=== PATIENT | female | born 1995 | race Caucasian/White ===

== ENCOUNTER 2019-09-23 19:20 | Inpatient (IN) | payer MEDICAID ==
[2019-09-23] MEDS ORDERED: DINOPROSTONE 10 MG VAGINAL INSERT.SR PV PRN (20:02)
[2019-09-23] MEDS ORDERED: RINGERS SOLUTION,LACTATED 300 ML IV ONE (20:02)
[2019-09-23] MEDS ORDERED: RINGERS SOLUTION,LACTATED 1,000 ML IV PRN (20:02)
[2019-09-23 20:09] LABS: ABSOLUTE EOSINOPHILS # (AUTO) 0.1 10^3/uL (0.0-0.6); ABSOLUTE LYMPHOCYTES (AUTO) 2.9 10^3/uL (0.5-4.7); ABSOLUTE NEUT (AUTO) 11.9 10^3/uL (1.7-8.2); BASOPHILS % (AUTO) 0.2 % (0-2); EOSINOPHILS % (AUTO) 0.4 % (0-6); HEMATOCRIT 35.2 % (36.0-47.0); HEMOGLOBIN 11.7 g/dL (12.0-15.5); LYMPHOCYTES % (AUTO) 18.1 % (13-45); MEAN CORPUSCULAR HEMOGLOBIN 29.8 pg (27.0-33.4); MEAN CORPUSCULAR HGB CONC 33.1 g/dL (32.0-36.0); MEAN CORPUSCULAR VOLUME 90 fl (80-97); MONOCYTES % (AUTO) 6.2 % (3-13); PLATELET COUNT 226 10^3/uL (150-450); RED BLOOD COUNT 3.91 10^6/uL (3.72-5.28); RED CELL DISTRIBUTION WIDTH 15.3 % (11.5-14.0); SEGMENTED NEUTROPHILS % (AUTO) 75.1 % (42-78); TOTAL CELLS COUNTED % (AUTO) 100 %; WHITE BLOOD COUNT 15.8 10^3/uL (4.0-10.5)
[2019-09-23] MEDS ORDERED: DINOPROSTONE 10 MG VAGINAL INSERT.SR ONE (20:32)
[2019-09-23 21:18] LABS: APPEARANCE,URINE SLIGHTLY-CLOUDY; BILIRUBIN,URINE NEGATIVE (NEGATIVE); COLOR,URINE YELLOW; GLUCOSE, URINE NEGATIVE (NEGATIVE); KETONES,URINE 20 mg/dL (NEGATIVE); LEUKOCYTE ESTERASE,URINE TRACE (NEGATIVE); NITRITE,URINE NEGATIVE (NEGATIVE); PROTEIN,URINE 30 mg/dL (NEGATIVE); URINE SPECIFIC GRAVITY 1.012; UROBILINOGEN,URINE NEGATIVE mg/dL (<2.0)
[2019-09-23 21:33] LABS: URINE AMPHETAMINES SCREEN NEGATIVE; URINE BENZODIAZEPINES SCREEN NEGATIVE; URINE COCAINE SCREEN NEGATIVE; URINE MARIJUANA (THC) SCREEN NEGATIVE; URINE METHADONE SCREEN NEGATIVE; URINE PHENCYCLIDINE SCREEN NEGATIVE
[2019-09-23 22:10] LABS: URINE BARBITURATES SCREEN UNCONFIRMED POSITIVE
[2019-09-24] MEDS ORDERED: ACETAMINOPHEN 325 MG TABLET PO PRN (01:43)
[2019-09-24] MEDS ORDERED: MAG HYDROX/AL HYDROX/SIMETH SUSP 30 ML UDCUP PO PRN (01:43)
[2019-09-24] MEDS ORDERED: ZOLPIDEM TARTRATE 5 MG TABLET PO PRN ×2 (01:43→09:48)
[2019-09-24] MEDS ORDERED: ACETAMINOPHEN 325 MG TABLET ONE (01:46)
[2019-09-24] MEDS ORDERED: ZOLPIDEM TARTRATE 5 MG TABLET ONE (01:46)
[2019-09-24] MEDS ORDERED: OXYTOCIN/NORMAL SALINE 20 UNIT/1,000 ML RTUINJ ONE ×2 (04:36→10:20)
[2019-09-24] MEDS ORDERED: LIDOCAINE 1% INJ-PF (10 MG/ML) 30 ML SDV ONE (04:36)
[2019-09-24] MEDS ORDERED: OXYTOCIN 10 UNIT/ML VIAL ONE (04:36)
[2019-09-24] MEDS ORDERED: MISOPROSTOL 0.2 MG TABLET ONE (04:36)
[2019-09-24] MEDS ORDERED: FENTANYL/BUPIVACAINE/NS/PF 0 MCG/0 ML RTUINJ EPI ONE (07:28)
[2019-09-24] MEDS ORDERED: EPHEDRINE SULFATE INJ 50 MG/1 ML AMPULE ONE (07:28)
[2019-09-24] MEDS ORDERED: BUPIVACAINE HCL 0.25 % INJ/PF (2.5 MG/1 ML) 30 ML VIAL ONE (07:28)
[2019-09-24] MEDS ORDERED: OXYTOCIN/NORMAL SALINE 20 UNIT/1,000 ML RTUINJ IV PRN (09:48)
[2019-09-24] MEDS ORDERED: DIBUCAINE 1% OINTMENT 56 GM TP PRN ×2 (09:48→18:15)
[2019-09-24] MEDS ORDERED: BENZOCAINE/MENTHOL AEROSOL SPRAY 56 ML TOP PRN ×2 (09:48→18:15)
[2019-09-24] MEDS ORDERED: DIPH/PERTUSS(ACELL)/TETANUS VAC/PF 0.5 ML SYR (>=10YO) IM PRN (09:48)
[2019-09-24] MEDS ORDERED: ACETAMINOPHEN WITH CODEINE #3 TABLET PO PRN ×2 (09:48)
[2019-09-24] MEDS ORDERED: BENZOCAINE/MENTHOL AEROSOL SPRAY 56 ML ONE (10:15)
[2019-09-24] MEDS ORDERED: IBUPROFEN 800 MG TABLET ONE (10:15)
[2019-09-24] MEDS: IBUPROFEN 800 MG TABLET PO SCH ×2 (10:20→22:51)
--- NOTE | 2019-09-24 15:59 | Delivery Summary ---
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 Nurse:: Kierra Griffin RN Nursery Nurse:: Rosa Hairston RN Student Observers:: LINO Cornejo SN K Zacharias, SN Scrub Tech/BILINGUAL MEDICAL RECEPTIONIST: Vanessa Florence, RELOCATION COMMISSIONER Additional Personnel: : Giselle Walters RN MATERNAL INFORMATION Delivery Anesthesia: None Medications After Delivery: Pitocin Drip 20 Units/1000ml NSS Meds After Delivery Comment: pitocin bolus 20 units in 1000mL nss Estimated Blood Loss (ml): 100 Delivery QBL: 100 Maternal Complications: None Provider Comments: of a viable femal @ 0840 w/ an SAAD w/ right compound hand presentation; APGARS 9, 9; 2nd deg bilateral periurethral and 2nd deg vag lacs LABOR SUMMARY EDC: 09/23/2019 00:00 No. Babies in Womb: 1 Attempted: No Labor Anesthesia: None LABOR INFORMATION Reason for Induction: Gestational Hypertension Onset of Labor: 09/24/2019 04:00 Complete Dilatation: 09/24/2019 08:09 Cervical Ripening Agents: Cervidil Oxytocin: N/A Group B Beta Strep: negative Antibiotics # of Doses: 0 Steroids Given: None Reason Steroids Not Administered: Not Applicable MEMBRANES Membranes Rupture Method: Spontaneous Rupture of Membranes: 09/24/2019 04:00 Length of Rupture (hr): 4.67 Amniotic Fluid Color: Clear Amniotic Fluid Amount: Moderate Amniotic Fluid Odor: Normal STAGES OF LABOR Stage 1 hr: 4 Stage 1 min: 9 Stage 2 hr: 0 Stage 2 min: 31 Stage 3 hr: 0 Stage 3 min: 25 Total Time in Labor hr: 5 Total Time in Labor min: 5 VAGINAL DELIVERY Episiotomy: None Laceration #1: Periurethral Laceration Extension #1: Second Degree Laceration #2: Vaginal Laceration Extension #2: Second Degree Laceration Repair: Yes Laceration Repair Note: 2nd deg bilateral periurethral lacs repaired w/3-0 Chromic; 2nd deg vaginal w/left lateral extension repaired w/2-0 vicryl Sponge Count Correct: Yes Sharps Count Correct: Yes BABY A INFORMATION Infant Delivery Date/Time: 09/24/2019 08:40 Method of Delivery: Vaginal Born in Route : No : N/A Forceps: N/A Vacuum Extraction: N/A Shoulder Dystocia : No PRESENTATION/POSITION BABY A Presentation: Cephalic Cephalic Presentation: Vertex Vertex Position: Right Occipital Anterior Breech Presentation: N/A (Annotations: Data stored by [facility] on behalf of user) PLACENTA INFORMATION BABY A Placenta Delivery Time : 09/24/2019 09:05 Placenta Method of Delivery: Spontaneous Placenta Status: Delivered SCORES BABY A Heart Rate 1 min: >100 bpm Resp Effort 1 min: Good Cry Reflex Irritability 1 min: Cough or Sneeze or Pulls Away Muscle Tone 1 min: Active Motion Color 1 min: Body [place], Extremities Blue Resuscitation Effort 1 min: Tactile Stimulation SCORE 1 MIN: 9 Heart Rate 5 min: >100 bpm Resp Effort 5 min: Good Cry Reflex Irritability 5 min: Cough or Sneeze or Pulls Away Muscle Tone 5 min: Active Motion Color 5 min: Body [place], Extremities Blue Resuscitation Effort 5 min: Tactile Stimulation SCORE 5 MIN: 9 INFORMATION BABY A Gestational Age at Delivery: 40.1 Gestational Status: Full Term- 39- 40.6 Weeks Infant Outcome : Liveborn Condition : Stable Infant Sex: Female IDENTIFICATION BABY A Infant Verification Date/Time: 09/24/2019 10:03 ID Band Number: [id number] Mother's Name Verified: Yes Infant RN Verifying : Odalys Resendez, RN and B Baidy, RN WEIGHT/LENGTH BABY A Infant Birthweight (gm): 3099 Weight (lb): 6 Weight (oz): 13 Length (in): 20.00 Infant Length (cm): 50.80 CORD INFORMATION BABY A No. Cord Vessels: 3 Nuchal Cord : N/A Cord Blood Taken: Yes-For Storage (Mom's Blood type +) Suction: None ASSESSMENT BABY A Physical Findings at Delivery: Within Normal Limits; Molding of the Head Respirations: Appears Normal Skin to Skin: Yes Infant Care By: Kamar Washington RN, Lazaro Hairston, LINO Transferred To: Remains with Mother BABY B INFORMATION : N/A SIGNATURES Signature: with User ID: [email or web address]
[2019-09-24] MEDS: FERROUS SULFATE 325 MG TABLET PO SCH ×2 (17:38→17:55)
[2019-09-24] MEDS: SENNOSIDES/DOCUSATE 8.6-50 MG 1 EACH TABLET PO SCH (17:38)
[2019-09-24] MEDS: DOCUSATE SODIUM 100 MG CAPSULE PO SCH ×2 (17:38→17:55)
[2019-09-24] MEDS: PRENATAL VITAMIN W DHA CAPSULE PO SCH (17:38)
[2019-09-24] MEDS ORDERED: MEASLES,MUMPS&RUBELLA VACC/PF 0.5 ML VIAL SUBCUT PRN (18:15)
--- NOTE | 2019-09-24 18:46 | Admission Physical ---
Datetime Report Generated by CPN: 09/24/2019 18:46 CURRENT ADMISSION Chief Complaint: Signs/Symptoms Gestational HTN Indication for Induction: Gestational HTN Admit Impression : Term, Intrauterine ; No Active Labor; Intact Membranes; Induction of Labor Admit Plan: Admit to Unit; Initiate Labor Induction Protocol ALLERGIES Medication Allergies: No Medication Allergies: No Known Allergies (09/23/2019) Latex: No Latex Allergies OBSTETRICAL HISTORY EDC: 09/23/2019 00:00 : 1 Para: 0 Gestational Diabetes: No Rh Sensitization: No Incompetent Cervix: No LAMONT: No Infertility: No ART Treatment: No Uterine Anomaly: No IUGR: No Hx Previous C/S: No Macrosomia: No Hx Loss/Stillborn: No PIH: No Hx : No Placenta Previa/Abruption: No Depression/PP Depression: No PTL/PROM: No Post Hemorrhage: No Current Procedures: Ultrasound SEE RECORDS Alcohol: No Marijuana : No Cocaine: No Other Illicit Drugs: No Cigarettes: Never Smoker. [id number] MEDICAL HISTORY Diabetes: No Blood Transfusion: No Pulmonary Disease (Asthma, TB): No Breast Disease: No Hypertension: Yes Plasterer Spray Gun Surgery: No Heart Disease: No Hosp/Surgery: Yes Autoimmune Disorder: No Anesthetic Complications: No Kidney Disease: No Abnormal Pap Smear: No Neuro/Epilepsy: No Psychiatric Disorders: No Other Medical Diseases: No Hepatitis/Liver Disease: No Significant Family History: No Varicosities/Phlebitis: No Trauma/Violence : No Thyroid Dysfunction: No Medical History Comments: High BP readings since 09/20/19. Tonsillectomy 2016. Kidney stones 2018. INFECTIOUS HISTORY Gonorrhea: No Genital Herpes: No Chlamydia: No Tuberculosis: No Syphilis: No Hepatitis: No HIV/AIDS Exposure: No Rash or Viral Illness: No PHYSICAL EXAM General: Normal HEENT: Normal Neurologic: Normal Thyroid: Normal Heart: Normal Lungs: Normal Breast: Normal Back: Normal Abdomen: Normal Genitourinary Exam: Normal Extremities: Normal DTRs: Normal Pelvic Type: Adequate Vital Signs: Reviewed; Within Normal Limits VAGINAL EXAM Dilatation: fingertip Effacement: thick Station: 0 Contraction Comments: rare MEMBRANES Pooling: Positive Membranes: Intact FETUS A EGA: 40.1 Monitoring: External US FHR- Baseline: 140s Variability: Moderate 6-25bpm Accelerations: 15X15 Decelerations: None FHR Category: Category I Presentation: Vertex Admit Comment: with an IUP @ 40.1 presented to L_D for a scheduled IOL secondary to GHTN. She reports good movement. GBS Neg. Her cervix was closed. Cervidil planned. PLANS FOR LABOR AND DELIVERY Labor and Delivery: None Pain Management: Epidural Feeding Preference: Formula Benefit of Breast Feed Discussed: Yes Circumcision: N/A INFORMED CONSENT Signature: with User ID: [email or web address]
[2019-09-24] MEDS: ACETAMINOPHEN WITH CODEINE #3 TABLET PO PRN (18:47)
[2019-09-25] MEDS: IBUPROFEN 800 MG TABLET PO SCH ×3 (06:03→21:21)
[2019-09-25 08:29] LABS: HEMATOCRIT 30.9 % (36.0-47.0); HEMOGLOBIN 10.3 g/dL (12.0-15.5); MEAN CORPUSCULAR HEMOGLOBIN 30.4 pg (27.0-33.4); MEAN CORPUSCULAR HGB CONC 33.4 g/dL (32.0-36.0); MEAN CORPUSCULAR VOLUME 91 fl (80-97); PLATELET COUNT 175 10^3/uL (150-450); RED CELL DISTRIBUTION WIDTH 15.2 % (11.5-14.0); WHITE BLOOD COUNT 12.4 10^3/uL (4.0-10.5)
--- NOTE | 2019-09-25 09:07 | PDOC PROGRESS REPORT ---
Subjective-OB Progress Note for:: 09/25/19 Subjective: Doing well, no c/o, bottle feeding, encouraged to wear bra, mod lochia Physical Exam (OB) Vital Signs: Temp Pulse Resp BP Pulse Ox 97.8 F 60 16 124/71 99 09/25/19 07:21 09/25/19 07:21 09/25/19 07:21 09/25/19 07:21 09/25/19 07:21 Intake & Output 09/24/19 09/25/19 09/26/19 06:59 06:59 06:59 Intake Total 750 Balance 750 Weight 70.4 kg - PIH/Pre-Eclampsia Headache: Absent Epigastric Pain: No Visual Changes: No - Lochia Lochia Amount: Small 10-25 ml Lochia Color: Rubra/Red - Abdomen Description: Soft Hernia Present: No Fundal Description: Firm, Midline Fundal Height: u/u - u/2 Objective-Diagnostic Laboratory: 09/25/19 08:20 09/25/19 08:20 WBC 12.4 H RBC 3.40 L Hgb 10.3 L Hct 30.9 L MCV 91 MCH 30.4 MCHC 33.4 RDW 15.2 H Plt Count 175 Assessment and Plan(PN) - Assessment and Plan (1) Vaginal laceration Qualifiers: Perineal laceration degree: second degree Is this a current diagnosis for this admission?: Yes (2) Delivery normal Is this a current diagnosis for this admission?: Yes - Time Spent with Patient Time with patient: Less than 15 minutes Medications reviewed and adjusted accordingly: Yes - Disposition Anticipated Discharge: Home Within: within 24 hours
[2019-09-25] MEDS: DOCUSATE SODIUM 100 MG CAPSULE PO SCH ×2 (09:38→17:25)
[2019-09-25] MEDS: PRENATAL VITAMIN W DHA CAPSULE PO SCH (09:38)
[2019-09-25] MEDS: FERROUS SULFATE 325 MG TABLET PO SCH ×2 (09:39→17:25)
[2019-09-25] MEDS: SENNOSIDES/DOCUSATE 8.6-50 MG 1 EACH TABLET PO SCH (09:39)
[2019-09-25] MEDS: ACETAMINOPHEN WITH CODEINE #3 TABLET PO PRN (21:20)
[2019-09-26] MEDS: ACETAMINOPHEN WITH CODEINE #3 TABLET PO PRN (05:24)
[2019-09-26] MEDS: IBUPROFEN 800 MG TABLET PO SCH (05:24)
[2019-09-26] MEDS: SENNOSIDES/DOCUSATE 8.6-50 MG 1 EACH TABLET PO SCH (09:40)
[2019-09-26] MEDS: DOCUSATE SODIUM 100 MG CAPSULE PO SCH (09:40)
[2019-09-26] MEDS: PRENATAL VITAMIN W DHA CAPSULE PO SCH (09:40)
[2019-09-26] MEDS: FERROUS SULFATE 325 MG TABLET PO SCH (09:40)
--- NOTE | 2019-09-26 10:24 | PDOC PROGRESS REPORT ---
Subjective-OB Progress Note for:: 09/26/19 Subjective: Doing well, no c/o, bottle feeding, voiding, scant lochia, father in room, ready to go Physical Exam (OB) Vital Signs: Temp Pulse Resp BP Pulse Ox 98.0 F 62 16 109/66 98 09/26/19 07:14 09/26/19 07:14 09/26/19 07:14 09/26/19 07:14 09/26/19 07:14 Intake & Output 09/25/19 09/26/19 09/27/19 06:59 06:59 06:59 Intake Total 750 450 Balance 750 450 - PIH/Pre-Eclampsia DTR's: 1 + Clonus: Negative Headache: Absent Epigastric Pain: No Visual Changes: No - Lochia Lochia Amount: Small 10-25 ml Lochia Color: Rubra/Red - Abdomen Description: Soft Hernia Present: No Fundal Description: Midline Fundal Height: u/u - u/2 Objective-Diagnostic Laboratory: 09/25/19 08:20 Assessment and Plan(PN) - Assessment and Plan (1) Vaginal laceration Qualifiers: Perineal laceration degree: second degree Is this a current diagnosis for this admission?: Yes (2) Delivery normal Is this a current diagnosis for this admission?: Yes - Time Spent with Patient Time with patient: Less than 15 minutes Medications reviewed and adjusted accordingly: Yes - Disposition Anticipated Discharge: Home Within: within 24 hours - baby home with parents
--- NOTE | 2019-09-26 10:29 | PDOC DISCHARGE SUMMARY ---
Impression - Admit/DC Date/PCP Admission Date/Primary Care Provider: 09/23/19 19:20 VENITA MONDRAGON MD Discharge Date: 09/26/19 - Discharge Diagnosis (1) Vaginal laceration Is this a current diagnosis for this admission?: Yes (2) Delivery normal Is this a current diagnosis for this admission?: Yes - Additional Information Discharge Diet: As Tolerated, Regular Discharge Activity: Activity As Tolerated, Pelvic Rest Referrals: VENITA MONDRAGON MD [Primary Care Provider] - ([facility] 2 weeks) Home Medications: Prenat 115/Iron Fum/Folic/Dss [ 19 Tablet] 1 each PO DAILY 09/23/19 HPI Gestational Age: 40.1 Reason(s) for Admission: Induction of Labor, PIH Admission Note: Pre-E Procedures: NST, Ultrasound Intrapartum Procedure(s): Spontaneous Vaginal Delivery Complication(s): Laceration-Vaginal, Laceration-Periurethral Laceration-Degree: 2nd - female, 06/21, compound hand Hospital Course Hospital Course: routine Results Laboratory Results: WBC 12.4 10^3/uL (4.0-10.5) H 09/25/19 08:20 RBC 3.40 10^6/uL (3.72-5.28) L 09/25/19 08:20 Hgb 10.3 g/dL (12.0-15.5) L 09/25/19 08:20 Hct 30.9 % (36.0-47.0) L 09/25/19 08:20 MCV 91 fl (80-97) 09/25/19 08:20 MCH 30.4 pg (27.0-33.4) 09/25/19 08:20 MCHC 33.4 g/dL (32.0-36.0) 09/25/19 08:20 RDW 15.2 % (11.5-14.0) H 09/25/19 08:20 Plt Count 175 10^3/uL (150-450) 09/25/19 08:20 Lymph % (Auto) 18.1 % (13-45) 09/23/19 19:46 [place] % (Auto) 6.2 % (3-13) 09/23/19 19:46 Eos % (Auto) 0.4 % (0-6) 09/23/19 19:46 Baso % (Auto) 0.2 % (0-2) 09/23/19 19:46 Absolute Neuts (auto) 11.9 10^3/uL (1.7-8.2) H 09/23/19 19:46 Absolute Lymphs (auto) 2.9 10^3/uL (0.5-4.7) 09/23/19 19:46 Absolute Monos (auto) 1.0 10^3/uL (0.1-1.4) 09/23/19 19:46 Absolute Eos (auto) 0.1 10^3/uL (0.0-0.6) 09/23/19 19:46 Absolute Basos (auto) 0.0 10^3/uL (0.0-0.2) 09/23/19 19:46 Seg Neutrophils % 75.1 % (42-78) 09/23/19 19:46 Urine Color YELLOW 09/23/19 19:25 Urine Appearance SLIGHTLY-CLOUDY 09/23/19 19:25 Urine pH 7.0 (5.0-9.0) 09/23/19 19:25 Ur Specific [place] 1.012 09/23/19 19:25 Urine Protein 30 mg/dL (NEGATIVE) H 09/23/19 19:25 Urine Glucose (UA) NEGATIVE mg/dL (NEGATIVE) 09/23/19 19:25 Urine Ketones 20 mg/dL (NEGATIVE) H 09/23/19 19:25 Urine Blood NEGATIVE (NEGATIVE) 09/23/19 19:25 Urine Nitrite NEGATIVE (NEGATIVE) 09/23/19 19:25 Urine Bilirubin NEGATIVE (NEGATIVE) 09/23/19 19:25 Urine Urobilinogen NEGATIVE mg/dL (<2.0) 09/23/19 19:25 Ur Leukocyte Esterase TRACE (NEGATIVE) H 09/23/19 19:25 Urine Ascorbic Acid NEGATIVE (NEGATIVE) 09/23/19 19:25 Urine Opiates Screen NEGATIVE 09/23/19 19:25 Urine Methadone Screen NEGATIVE 09/23/19 19:25 Ur Barbiturates Screen UNCONFIRMED POSITIVE 09/23/19 19:25 Ur Phencyclidine Scrn NEGATIVE 09/23/19 19:25 Ur Amphetamines Screen NEGATIVE 09/23/19 19:25 U Benzodiazepines Scrn NEGATIVE 09/23/19 19:25 Urine Cocaine Screen NEGATIVE 09/23/19 19:25 U Marijuana (THC) Screen NEGATIVE 09/23/19 19:25 RPR NONREACTIVE (NONREACTIVE) 09/23/19 19:46 Blood Type B POSITIVE 09/23/19 19:46 Antibody Screen NEGATIVE 09/23/19 19:46 Plan Health Concerns: PP pre-e, rev S&S to report Plan of Treatment: home, aware of reasons to notify us Goals: no complications Time Spent: Less than 30 Minutes
[2019-09-26 13:06] VITALS: BP 114/78
[2019-09-26] MEDS ORDERED: INFLUENZA QUAD (6MOS+) 2019-20 VAC 0.5 ML SYR IM ONE ×2 (13:07→13:14)
== END 2019-09-26 14:00 | disposition home or self-care (01) | DRG 807 ==
LOC: LR 19:20 → 2S 09-24 15:46
PROVIDERS: ADMIT Obstetrics & Gynecology; ATTEND Obstetrics & Gynecology
PROC: 10E0XZZ Delivery of Products of Conception, External Approach (ICD-10-PCS; principal; 2019-09-24)
PROC: 0KQM0ZZ Repair Perineum Muscle, Open Approach (ICD-10-PCS; 2019-09-24)
PROC: 0UQMXZZ Repair Vulva, External Approach (ICD-10-PCS; 2019-09-24)
PROC: 3E02340 Introduction of Influenza Vaccine into Muscle, Percutaneous Approach (ICD-10-PCS; 2019-09-26)
PROC: 3E0234Z Introduction of Serum, Toxoid and Vaccine into Muscle, Percutaneous Approach (ICD-10-PCS; 2019-09-26)
DX: O13.4 Gestational [pregnancy-induced] hypertension without significant proteinuria, complicating childbirth (principal); Z37.0 Single live birth; O71.82 Other specified trauma to perineum and vulva; O70.1 Second degree perineal laceration during delivery; Z3A.40 40 weeks gestation of pregnancy; O32.6XX0 Maternal care for compound presentation, not applicable or unspecified; Z23 Encounter for immunization
CPT/HCPCS: 36415; 80307; 81005; 85025; 85027; 86592; 86850; 86900; 86901; 90686; 90707; 90715; 94760; J2590; J3010; J3490